=== PATIENT | male | born 1950 | race Caucasian/White ===

== ENCOUNTER 2017-03-27 07:42 | Day surgery (SDC) | payer MEDICARE, OTHER ==
[~2017-03-27 07:42] MED LIST: Lactated Ringers 1,000 ML IV SCH; Lidocaine 0.5% 50 ML SDV ONE; Midazolam 1 MG/ML 2 ML SDV ONE; Propofol 200 MG/20 ML SDV ONE; Sodium Chloride 0.9% 5 ML Syringe FLUSH PRN; ceFAZolin 1 GM Vial ONE; fentaNYL 100 MCG/2 ML SDV ONE
[2017-03-27] MEDS ORDERED: Bupivacaine 0.5% 30 ML SDV ONE (07:48)
[2017-03-27] MEDS ORDERED: Propofol 200 MG/20 ML SDV ONE (08:42)
[2017-03-27] MEDS ORDERED: Midazolam 1 MG/ML 2 ML SDV IV ONE (08:56)
[2017-03-27] MEDS ORDERED: Propofol 200 MG/20 ML SDV IV ONE (08:56)
[2017-03-27] MEDS ORDERED: ceFAZolin 1 GM Vial IV ONE (08:56)
[2017-03-27] MEDS ORDERED: Lidocaine 0.5% 50 ML SDV INJECT ONE (08:56)
[2017-03-27] MEDS ORDERED: fentaNYL 100 MCG/2 ML SDV IV ONE (08:56)
[2017-03-27] MEDS ORDERED: Bupivacaine 0.5% 30 ML SDV INFILT ONE (09:36)
--- NOTE | 2017-03-27 10:43 | PCM.OPNOTE ---
- General Post-Op/Procedure Note Date of Surgery/Procedure: 03/27/17 Operative Procedure(s): Excision /Release of Recurrent Duputreyen's Contracture of left little and ring Fingers. Primary Surgeon: Nancy Camacho Complications: None Condition: Good Free Text/Narrative:: Preoperative diagnosis: Recurrent Dupuytren contracture involving the left little and middle fingers. Postoperative diagnosis: As above Procedure performed: Excision of Recurrent Dupuytren's contracture involving the little finger and the ring finger of the left hand. informed consent was obtained from the patient regarding this procedure. All possible complications were thoroughly discussed. These include infection, pain , bleeding, recurrence, need for additional operative procedures, nerve injury, vascular injury, tendon injury and other unknown complications. alternatives were also discussed. With a clear understanding, the patient decided to proceed. The patient was taken to the OR and kept in the supine position. a satisfactory Ashly block anesthetic was applied to the left upper extremity after exsanguination. Inspection revealed recurrent Dupuytren's contracture involving the little and ring fingers. In addition there was some degree of flexion contracture involving the PIP of the little and ring fingers. Lilly's incisions were used. Careful subcutaneous dissection was performed. The contracture/scar was identified first of the little finger. This was carefully excised taking care to excise only the scar tissue and to preserve the digital vessels and nerves on either side. Also the flexor tendon structures were preserved. This procedure was repeated for the ring finger in a similar fashion. The wound was thoroughly irrigated with normal saline. The tourniquet was released slowly. Small bleeders were cauterized. There was decided improvement in the flexion of the little and ring fingers. The flexion contractures of the PIP's of both fingers remained. The wound was then closed using 4-0 nylon sutures. Telfa and 4 and 4 bandages were used for a pressure dressing. The patient tolerated the procedure well. There were no operative complications. The patient was transferred to the recovery room in an excellent condition.
[2017-03-27 13:46] VITALS: BP 121/64
== END 2017-03-27 11:40 | disposition home or self-care (01) ==
LOC: KA.SDS 07:42
PROVIDERS: ATTEND Family Medicine
DX: M72.0 Palmar fascial fibromatosis [Dupuytren] (principal); I25.10 Atherosclerotic heart disease of native coronary artery without angina pectoris; E78.2 Mixed hyperlipidemia; I21.4 Non-ST elevation (NSTEMI) myocardial infarction; Z79.82 Long term (current) use of aspirin; Z79.899 Other long term (current) drug therapy
CPT/HCPCS: 26045; J0690; J2250; J2704; J3010; J7120; 01810; 88304